=== PATIENT | male | born 1990 | race Caucasian/White ===

== ENCOUNTER 2018-06-30 18:38 | Emergency (ER) | payer SELFPAY ==
[2018-06-30 18:53] VITALS: BP 121/71; PULSE 104; TEMP 98.4; BMI 41.1
--- NOTE | 2018-06-30 18:54 | PDOC ---
Rapid Medical Evaluation Chief Complaint: Alcohol intoxication Medical Evaluation: Allergies Allergy/AdvReac Type Severity Reaction Status Date / Time No Known Allergies Allergy Verified 06/30/18 18:53 Vital Signs Temp Pulse Resp BP Pulse Ox 98.4 F 104 H 18 121/71 96 06/30/18 18:50 06/30/18 18:50 06/30/18 18:50 06/30/18 18:50 06/30/18 18:50 I have performed a brief in-person evaluation of this patient. The patient presents with a chief complaint of: hx of alcohol abuse, [facility] refused to take him as was told that his MAGNOLIA was not high enough; last drink 2 hours ago Pertinent physical exam findings: No sign of withdrawal, noted steady gait I have ordered the following: Nothing The patient will proceed to the ED for further evaluation. 06/30/18 18:53 Discharge Disposition - Discharge Dispostion Condition at time of disposition: Stable - Referrals - Patient Instructions - Post Discharge Activity
[2018-06-30] MEDS ORDERED: chlordiazePOXIDE HCL 25 MG CAPSULE PO ONE (20:56)
[2018-06-30] MEDS ORDERED: chlordiazePOXIDE HCL 25 MG CAPSULE ONE (21:02)
--- NOTE | 2018-06-30 21:03 | PDOC ---
Attending Attestation - HPI HPI: 06/30/18 21:57 28YOM with significant past medical history of alcohol abuse with, alcohol intoxication. Patient endorses he went to [facility] but was not intoxicated enough for admission into detox. - Physicial Exam PE: 06/30/18 21:58 GENERAL: Well-appearing, well-nourished. No apparent distress. HEENT: Normocephalic, atraumatic. PERRL, EOM intact. CARDIOVASCULAR: Normal S1, S2. Regular rate and rhythm. PULMONARY: Clear to auscultation bilaterally. ABDOMEN: Protuberant. Soft, non-distended, non-tender. EXTREMITIES: Normal ROM in all four extremities. No gross deformities. SKIN: Warm, dry. No rash NEUROLOGICAL: No focal neurological deficits. <Barney Cruz - Last Filed: 06/30/18 21:57> - Resident Resident Name: Oscar Guido - ED Attending Attestation I have performed the following: I have examined & evaluated the patient, The case was reviewed & discussed with the resident, I agree w/resident's findings & plan, Exceptions are as noted - Medical Decision Making 07/01/18 02:31 pt given information for several facilities that provide etoh rehab <Sofiya Moore - Last Filed: 07/01/18 02:31> Attestations - Attestations 06/30/18 21:58 Documentation prepared by Barney Cruz, acting as biomedical photographer for Sofiya Moore MD. <Barney Cruz - Last Filed: 06/30/18 21:57>
--- NOTE | 2018-06-30 21:24 | PDOC ---
History of Present Illness - General Chief Complaint: Alcohol intoxication Stated Complaint: INTOXIC Time Seen by Provider: 06/30/18 18:53 History Source: Patient Exam Limitations: No Limitations - History of Present Illness Initial Comments: 06/30/18 21:18 Patient is a 28M with history of etoh abuse and etoh cirrhosis here today complaining of alcohol withdrawal. Patient states that he went to [facility] for detox but his MAGNOLIA was not high enough to qualify for detox. Patient states that he was having some shakes. Last drink was two beers three hours ago. Denies fevers, chills, nausea, vomiting. Denies shortness of breath, chest pain, abdominal pain. Denies dysuria, confusion. Past History - Past Medical History Allergies/Adverse Reactions: Allergies Allergy/AdvReac Type Severity Reaction Status Date / Time No Known Allergies Allergy Verified 06/30/18 18:53 COPD: No HTN: Yes Other medical history: substance abuse, ETOH - Surgical History Cardiac Surgery: No Lung Surgery: No - Immunization History Immunization Up to Date: No - Suicide/Smoking/Psychosocial Hx Smoking History: Never smoked Have you smoked in the past 12 months: No Information on smoking cessation initiated: No Hx Alcohol Use: Yes Drug/Substance Use Hx: Yes ([facility]) Review of Systems - Review of Systems Comments:: 06/30/18 21:22 GENERAL/CONSTITUTIONAL: No fever or chills. No weakness. HEAD, EYES, EARS, NOSE AND THROAT: No change in vision. No sore throat. CARDIOVASCULAR: No chest pain or shortness of breath RESPIRATORY: No cough, wheezing, or hemoptysis. GASTROINTESTINAL: No nausea, vomiting, diarrhea or constipation. GENITOURINARY: No dysuria, frequency, or change in urination. MUSCULOSKELETAL: No joint or muscle swelling or pain. No neck or back pain. SKIN: No rash NEUROLOGIC: No headache, vertigo, loss of consciousness, or change in strength/ sensation. ENDOCRINE: No increased thirst. No abnormal weight change HEMATOLOGIC/LYMPHATIC: No anemia, easy bleeding, or history of blood clots. ALLERGIC/IMMUNOLOGIC: No hives or skin allergy. *Physical Exam - Vital Signs Last Vital Signs Temp Pulse Resp BP Pulse Ox 98.4 F 104 H 18 121/71 96 06/30/18 18:50 06/30/18 18:50 06/30/18 18:50 06/30/18 18:50 02/11/19 18:50 - Physical Exam Comments: 06/30/18 21:24 GENERAL: Awake, alert, and fully oriented, in no acute distress HEAD: No signs of trauma, normocephalic, atraumatic EYES: PERRLA, EOMI, sclera anicteric, conjunctiva clear ENT: Auricles normal inspection, hearing grossly normal, nares patent, oropharynx clear without exudates. Moist mucosa NECK: Normal ROM, supple, no lymphadenopathy, JVD, or masses LUNGS: No distress, speaks full sentences, clear to auscultation bilaterally HEART: Regular rate and rhythm, normal S1 and S2, no murmurs, rubs or gallops, peripheral pulses normal and equal bilaterally. ABDOMEN: Soft, nontender, normoactive bowel sounds. No guarding, no rebound. No masses EXTREMITIES: Normal inspection, Normal range of motion, no edema. No clubbing or cyanosis. NEUROLOGICAL: Cranial nerves II through XII grossly intact. Normal speech, normal gait, no focal sensorimotor deficits. CIWA score of 4. SKIN: Warm, Dry, normal turgor, no rashes or lesions noted. Moderate Sedation - Procedure Monitoring Vital Signs: Procedure Monitoring Vital Signs Temperature 98.4 F 06/30/18 18:50 Pulse Rate 104 H 06/30/18 18:50 Respiratory Rate 18 06/30/18 18:50 Blood Pressure 121/71 06/30/18 18:50 O2 Sat by Pulse Oximetry (%) 96 06/30/18 18:50 Medical Decision Making - Medical Decision Making 06/30/18 21:25 Patient is 28M here today seeking alcohol withdrawal. Vitals notable for tachycardia at triage. Not tachycardic during my exam. Full CIWA performed, score 4. Not clinically intoxicated at this time, drank 3 beers today, last drink 3 hours ago.. Will give librium, refer to rehab. *DC/Admit/Observation/Transfer Diagnosis at time of Disposition: Alcohol abuse - Discharge Dispostion Disposition: HOME Condition at time of disposition: Good Decision to Admit order: No - Referrals - Patient Instructions Printed Discharge Instructions: DI for Alcohol Abuse Additional Instructions: Please follow up with an alcohol rehab center. You do not require medical withdrawal assistance at this time. Please follow up with your primary care doctor. Please return if you have worsening shakes, anxiety, sweating or fever, or if you have any new, worsening or concerning symptoms. - Post Discharge Activity
== END 2018-06-30 22:07 | disposition home or self-care (01) ==
LOC: JER 18:38
DX: F10.120 Alcohol abuse with intoxication, uncomplicated (principal); Y90.9 Presence of alcohol in blood, level not specified; I10 Essential (primary) hypertension; F19.10 Other psychoactive substance abuse, uncomplicated
CPT/HCPCS: 99281-25